=== PATIENT | female | born 1990 | race American Indian/Alaskan Native ===

== ENCOUNTER 2017-03-02 16:59 | Emergency (ER) | payer MEDICAID | END 2017-03-03 01:32 | disposition left against medical advice (07) | LOC: ED 16:59 | DX: R10.9 Unspecified abdominal pain (principal); Z53.21 Procedure and treatment not carried out due to patient leaving prior to being seen by health care provider ==

== ENCOUNTER 2017-09-15 17:30 | Outpatient (CLI) | payer MEDICAID ==
[2017-09-15 18:03] VITALS: BP 124/57
[2017-09-15] MEDS ORDERED: LACTATED RINGERS 500 ML IV ONE ×2 (18:05→20:03)
[2017-09-15] MEDS ORDERED: BRETHINE SUB-Q SCH (21:00)
== END 2017-09-15 21:30 | disposition home or self-care (01) ==
LOC: TRG 17:30
PROVIDERS: ATTEND Obstetrics & Gynecology
DX: Z34.93 Encounter for supervision of normal pregnancy, unspecified, third trimester (principal); Z3A.32 32 weeks gestation of pregnancy
CPT/HCPCS: 59025; 96360; 96372; J3105; J7120

== ENCOUNTER 2017-09-20 09:36 | Outpatient (CLI) | payer MEDICAID ==
[2017-09-20] MEDS ORDERED: LACTATED RINGERS 1,000 ML IV ONE (09:50)
[2017-09-20 10:29] VITALS: BP 114/59
[2017-09-20 11:05] LABS: Bacteria,Urine 1+ /HPF (Negative); Bilirubin,Urine NEG (Negative); Blood,Urine NEG (Negative); Ketones,Urine NEG (Negative); Leukocyte Esterase,Urine NEG (Negative); Mucus,Urine FEW /HPF; Nitrite,Urine NEG (Negative); Protein,Urine <15 mg/dL mg/dL (Negative); Urobilinogen,Urine < 2.0 mg/dL (<2.0)
== END 2017-09-20 12:09 | disposition home or self-care (01) ==
LOC: TRG 09:36
PROVIDERS: ATTEND Obstetrics & Gynecology
DX: Z34.93 Encounter for supervision of normal pregnancy, unspecified, third trimester (principal); Z3A.33 33 weeks gestation of pregnancy
CPT/HCPCS: 59025; 81001; 96360; 96361; J7120

== ENCOUNTER 2017-10-23 08:01 | Outpatient (CLI) | payer MEDICAID ==
[2017-10-23 09:25] VITALS: BP 121/57
== END 2017-10-23 09:35 | disposition home or self-care (01) ==
LOC: TRG 08:01
PROVIDERS: ATTEND Obstetrics & Gynecology
DX: O47.1 False labor at or after 37 completed weeks of gestation (principal); Z3A.37 37 weeks gestation of pregnancy
CPT/HCPCS: 59025

== ENCOUNTER 2017-10-27 15:38 | Inpatient (IN) | payer MEDICAID ==
[2017-10-27] MEDS ORDERED: BRETHINE SUB-Q PRN (16:06)
[2017-10-27] MEDS ORDERED: SUBLIMAZE IV PRN (16:06)
[2017-10-27] MEDS ORDERED: MINERAL OIL PO PRN (16:06)
[2017-10-27] MEDS ORDERED: ePHEDrine SULFATE IV PRN (16:06)
[2017-10-27] MEDS ORDERED: XYLOCAINE 2% INFILTRATI ONE (16:06)
[2017-10-27] MEDS ORDERED: ZOFRAN IV PRN (16:06)
--- NOTE | 2017-10-27 16:38 | History and Physical Report ---
History of Present Illness Date of examination: 10/27/17 (sent from office in active labor) History of present illness: EDC Confirmation: 11/08/2017 Gestational Age: 6 weeks Past History : 3 Term Births: 0 Premature Births: 1 Living Children: 1 Para: 1 Mult. Births: 0 Prev : 0 Prev. attempt? 0 Aborta: 1 Elect. Ab: 0 Spont. Ab: 1 Ectopics: 0 # 1 Delivery date: 06/23/2012 Weeks Gestation: 36 labor: yes Delivery type: Hours of labor: 23 Anesthesia type: epidural Delivery location: [place] Sex: Female weight: 6-0 Name: Michelle Comments: Place on Bedrest x 2 month # 2 Delivery date: 01/22/2015 Weeks Gestation: 12 Delivery type: SAB Comments: No D&C Past Medical History: Asthma Past Surgical History: Negative Past Surgical History Family History Summary: Other family member - Has No Family History of Ovarvian Cancer - Entered On: Other family member - Has No Family History of Colon Cancer - Entered On: 2016 Other family member - Has No Family History of Breast Cancer - Entered On: 2016 Social History: Abdiaziz Oliveira Patient is Risk Factors: Smoked Tobacco Use: Never smoker Drug use: no Alcohol use: no Dietary Counseling: pn yes Past Medical History Surgery (Non-junior engineer): Negative Past Surgical History Abnormal PAP: negative Uterine Anomaly: negative Social Hx: Abdiaziz Oliveira Patient is Infection History Hx of STD: none Personal hx. of genital herpes: no Genetic History Congenital Heart Defect: Mom: no Dad: no Brianna Disease: Mom: no Dad: no Thalassemia Mom: no Dad: no Neural Tube Defect Mom: no Dad: no Down's Syndrome Mom: no Dad: no Iron-Sachs Mom: no Dad: no Sickle Cell Disease/Trait Mom: no Dad: no Hemophilia Mom: no Dad: no Muscular Dystrophy Mom: no Dad: no Cystic Fibrosis Mom: no Dad: no [place] Chorea Mom: no Dad: no Mental Retardation Mom: no Dad: no Fragile X Mom: no Dad: no Other Genetic/Chromosomal Disorder Mom: no Dad: no Child w/other defect Mom: no Dad: no Enviromental Exposures Xray Exposure: no Medication, drug, or alcohol use since LMP: no Chemical/Other Exposure: no Exposure to Cat Liter: no Hx of Parvovirus (Fifth Disease): no Active Medications: FORMULA 27-1 MG ORAL TABS ( VIT-FE FUMARATE-FA) 1 po q day as directed 19 TABS ( VIT-DSS-FE FUM-FA TABS) Current Allergies (reviewed today): No known allergies Laboratory Results Date/Time Collected: 03/15/17 Routine Urinalysis Leukocytes: negative Nitrite: negative Urobilinogen: negative Protein: negative Blood: negative Ketone: large (80) Bilirubin: negative Glucose: negative Urine HCG: negative Review of Systems General Complains of fatigue. Denies fever, chills, sweats, anorexia, weakness, malaise, weight loss and sleep disorder. Complains of pelvic pain. Denies vaginal discharge, incontinence, dysuria, hematuria, urinary frequency, amenorrhea, menorrhagia, abnormal vaginal bleeding, genital sores, decreased libido, painful periods, painful sex, urinary urgency, hot flashes, vaginal dryness, vaginal itching and vaginal odor. CV Denies chest pains, palpitations, syncope, dyspnea on exertion, orthopnea, PND and peripheral edema. Resp Denies cough, dyspnea at rest, excessive sputum, hemoptysis, wheezing and pleurisy. GI Denies nausea, vomiting, diarrhea, constipation, change in bowel habits, abdominal pain, melena, hematochezia, jaundice, gas/bloating, indigestion/ heartburn, dysphagia and odynophagia. Breast Complains of breast pain. Denies left breast lump, right breast lump, nipple discharge, bloody discharge from nipple, abnormal mammogram and breast enlargement. Psych Denies depression, anxiety, irritability and mood swings. PHYSICAL EXAM HEENT: normocephalic, no lesions or deformities Neck/Thyroid: supple, thyroid normal Skin no significant abnormal lesions or rashes . .Tatoo(s) are present Chest: respiratory effort normal, clear to auscultation Breasts: skin/areolae normal, no masses, no nipple discharge, no erythema/warmth /tenderness, and axillae normal. CV: regular, normal S1-S2, no murmur, no rub, no gallop .Tatoo(s) are present Abdomen: Obese, normal bowel sounds, soft, nontender, no HSM .Tatoo(s) are present Musculoskeletal: grossly normal ROM in joints, no joint tenderness or muscle weakness Neuro: no gross anomalities Extremities: no clubbing, cyanosis, or edema .Tatoo(s) are present Flowsheet View for Follow-up Visit Estimated weeks of gestation: 6 Weight: 207 Blood pressure: 117 / 60 Urine protein: negative Urine glucose: negative Urine nitrite: negative Infant's Physician: undecided Past History - Obstetrical History Expected Date of Delivery: 11/08/17 Actual Gestation: 38 Week(s) 2 Day(s) : 3 Para: 1 Number of Pregnancies: 1 (36 weeks) Spontaneous Abortions: 1 Number of Living Children: 1 Medications and Allergies Allergies Allergy/AdvReac Type Severity Reaction Status Date / Time No Known Allergies Allergy Verified 09/15/17 18:04 Home Medications Medication Instructions Recorded Confirmed Last Taken Type Vit No.129/Iron/Folic 1 each PO DAILY 09/15/17 09/20/17 09/15/17 08:00 History [ Tablet] Active Meds: Active Medications Ephedrine Sulfate (Ephedrine Sulfate) 10 mg IV Q2M PRN PRN Reason: Hypotension Fentanyl (Sublimaze) 100 mcg IV Q2H PRN PRN Reason: Labor Pain Lactated Ringer's (Lactated Ringers) 1,000 mls @ 125 mls/hr IV DIRECT XAVIER Oxytocin/Sodium Chloride (Pitocin/Ns 20 Unit/1000ml Drip) 20 units in 1,000 mls @ 125 mls/hr IV DIRECT XAVIER Oxytocin/Sodium Chloride (Pitocin/Ns 30 Unit/500ml) 30 units in 500 mls @ 4 mls /hr IV Q30MIN XAVIER PRN Reason: Protocol Lidocaine (Xylocaine 2%) 20 ml INFILTRATI ONCE ONE Stop: 10/27/17 16:07 Mineral Oil (Mineral Oil) 30 ml PO QHS PRN PRN Reason: Constipation Ondansetron HCl (Zofran) 4 mg IV Q8H PRN PRN Reason: Nausea And Vomiting Terbutaline Sulfate (Brethine) 0.25 mg SUB-Q ONCE PRN PRN Reason: Hyperstimulation/Hypertonicity - Physical Exam Breasts: Positive: deferred Cardiovascular: Regular rate, Normal S1, Normal S2 Lungs: Positive: Normal air movement Abdomen: Positive: normal appearance, soft, normal bowel sounds. Negative: distention, tenderness Genitourinary (Female): Positive: normal external genitalia Vulva: both: normal Vagina: Positive: normal moisture. Negative: discharge Cervix: Negative: lesion, discharge Uterus: Positive: normal size, normal contour Adnexa: both: normal Anus/Rectum: Positive: normal perianal skin, heme negative. Negative: rectal mass, hemorrhoids Extremities: Positive: normal Deep Tendon Reflex Grade: Normal +2 - Obstetrical FHR: category 1 Uterine Contraction Monitor Mode: External Cervical Dilatation: 5 (per gum worker) Cervical Effacement Percentage: 70 station: -2 Uterine Contraction Pattern: Irregular Uterine Tone Measurement Phase: Resting Uterine Contraction Intensity: Moderate Results All other labs normal. Strep Gp B RAINER Negative HBsAg Screen Negative Negative *1 Rubella Antibodies, IgG 2.91 index Immune >0.99 *2 Non-immune <0.90 Equivocal 0.90 - 0.99 Immune >0.99 ABO Grouping O *3 Rh Factor Positive *4 Please note: Prior records for this patient's ABO / Rh type are not available for additional verification. Antibody Screen Negative Negative *5 RPR Non Reactive Non Reactive *6 WBC [H] 18.5 x10E3/uL 3.4-10.8 *7 RBC 4.35 x10E6/uL 3.77-5.28 *8 Hemoglobin 12.7 g/dL 11.1-15.9 *9 Hematocrit 38.7 % 34.0-46.6 *10 MCV 89 fL 79-97 *11 MCH 29.2 pg 26.6-33.0 *12 MCHC 32.8 g/dL 31.5-35.7 *13 RDW 13.5 % 12.3-15.4 *14 Platelets 264 x10E3/uL 150-379 *15 Neutrophils 69 % *16 Lymphs 22 % *17 Monocytes 7 % *18 Eos 2 % *19 Basos 0 % *20 ! Immature Cells <No Reported Value> *21 Neutrophils (Absolute) [H] 13.0 x10E3/uL 1.4-7.0 *22 Lymphs (Absolute) [H] 4.0 x10E3/uL 0.7-3.1 *23 Monocytes(Absolute) [H] 1.2 x10E3/uL 0.1-0.9 *24 Eos (Absolute) 0.3 x10E3/uL 0.0-0.4 *25 Baso (Absolute) 0.0 x10E3/uL 0.0-0.2 *26 ! Immature Granulocytes 0 % *27 ! Immature Grans (Abs) 0.0 x10E3/uL 0.0-0.1 *28 ! NRBC <No Reported Value> *29 Hematology Comments: <No Reported Value> *30 Tests: (2) Cystic Fibrosis Profile (862579) ! CF, Screen Comment: *31 RESULTS: Negative for 32 mutations analyzed Tests: (3) HB Solu + Rflx Fra (407924) Hemoglobin (Hgb) Solubility Negative Negative *33 Tests: (4) Panel 349412 ([id number]) HIV Screen 4th Generation wRfx Non Reactive Non Reactive *34 Tests: (5) HCV Ab w/Rflx to Verification (700408) ! HCV Ab <0.1 s/co ratio 0.0-0.9 *35 Tests: (6) Comment: (874515) ! Comment: SPRCS *36 Non reactive HCV antibody screen is consistent with no HCV infection, unless recent infection is suspected or other evidence exists to indicate HCV infection. Assessment and Plan 27yo @ 38 weeks in labor Sent from OB office. GBS negative. Orders in EMR.Anticipate delivery
[2017-10-27] MEDS ORDERED: PITOCin/NS 30 UNIT/500ML 30 UNITS/500 ML BAG IV SCH (17:00)
[2017-10-27] MEDS ORDERED: LACTATED RINGERS 1,000 ML IV SCH (17:00)
[2017-10-27] MEDS ORDERED: PITOCin/NS 20 UNIT/1000ML DRIP 20 UNITS/1,000 ML BAG IV SCH (17:00)
--- NOTE | 2017-10-27 17:21 | Progress Note ---
Assessment and Plan Bolusing for epidural SVE no chg AROM clear Internals placed. Pit started @ 4mu will increase per protocol once epidural is placed. All questions addressed. Subjective - Subjective Date of service: 10/27/17 (AROM clear) Principal diagnosis: IUP @ 38 weeks in labor Interval history: EDC Confirmation: 11/08/2017 Gestational Age: 6 weeks Past History : 3 Term Births: 0 Premature Births: 1 Living Children: 1 Para: 1 Mult. Births: 0 Prev : 0 Prev. attempt? 0 Aborta: 1 Elect. Ab: 0 Spont. Ab: 1 Ectopics: 0 # 1 Delivery date: 06/23/2012 Weeks Gestation: 36 labor: yes Delivery type: Hours of labor: 23 Anesthesia type: epidural Delivery location: [place] Infant Sex: Female weight: 6-0 Name: Michelle Comments: Place on Bedrest x 2 month # 2 Delivery date: 01/22/2015 Weeks Gestation: 12 Delivery type: SAB Comments: No D&C Past Medical History: Asthma Past Surgical History: Negative Past Surgical History Family History Summary: Other family member - Has No Family History of Ovarvian Cancer - Entered On: Other family member - Has No Family History of Colon Cancer - Entered On: 2016 Other family member - Has No Family History of Breast Cancer - Entered On: 2016 Social History: Abdiaziz Associate Patient is Risk Factors: Smoked Tobacco Use: Never smoker Drug use: no Alcohol use: no Dietary Counseling: pn yes Past Medical History Surgery (Non-obstetrics/gynecology nurse): Negative Past Surgical History Abnormal PAP: negative Uterine Anomaly: negative Social Hx: Dougpetrt Associate Patient is Infection History Hx of STD: none Personal hx. of genital herpes: no Genetic History Congenital Heart Defect: Mom: no Dad: no Brianna Disease: Mom: no Dad: no Thalassemia Mom: no Dad: no Neural Tube Defect Mom: no Dad: no Down's Syndrome Mom: no Dad: no Iron-Sachs Mom: no Dad: no Sickle Cell Disease/Trait Mom: no Dad: no Hemophilia Mom: no Dad: no Muscular Dystrophy Mom: no Dad: no Cystic Fibrosis Mom: no Dad: no [place] Chorea Mom: no Dad: no Mental Retardation Mom: no Dad: no Fragile X Mom: no Dad: no Other Genetic/Chromosomal Disorder Mom: no Dad: no Child w/other defect Mom: no Dad: no Enviromental Exposures Xray Exposure: no Medication, drug, or alcohol use since LMP: no Chemical/Other Exposure: no Exposure to Cat Liter: no Hx of Parvovirus (Fifth Disease): no Active Medications: FORMULA 27-1 MG ORAL TABS ( VIT-FE FUMARATE-FA) 1 po q day as directed 19 TABS ( VIT-DSS-FE FUM-FA TABS) Current Allergies (reviewed today): No known allergies Laboratory Results Date/Time Collected: 03/15/17 Routine Urinalysis Leukocytes: negative Nitrite: negative Urobilinogen: negative Protein: negative Blood: negative Ketone: large (80) Bilirubin: negative Glucose: negative Urine HCG: negative Review of Systems General Complains of fatigue. Denies fever, chills, sweats, anorexia, weakness, malaise, weight loss and sleep disorder. Complains of pelvic pain. Denies vaginal discharge, incontinence, dysuria, hematuria, urinary frequency, amenorrhea, menorrhagia, abnormal vaginal bleeding, genital sores, decreased libido, painful periods, painful sex, urinary urgency, hot flashes, vaginal dryness, vaginal itching and vaginal odor. CV Denies chest pains, palpitations, syncope, dyspnea on exertion, orthopnea, PND and peripheral edema. Resp Denies cough, dyspnea at rest, excessive sputum, hemoptysis, wheezing and pleurisy. GI Denies nausea, vomiting, diarrhea, constipation, change in bowel habits, abdominal pain, melena, hematochezia, jaundice, gas/bloating, indigestion/ heartburn, dysphagia and odynophagia. Breast Complains of breast pain. Denies left breast lump, right breast lump, nipple discharge, bloody discharge from nipple, abnormal mammogram and breast enlargement. Psych Denies depression, anxiety, irritability and mood swings. PHYSICAL EXAM HEENT: normocephalic, no lesions or deformities Neck/Thyroid: supple, thyroid normal Skin no significant abnormal lesions or rashes . .Tatoo(s) are present Chest: respiratory effort normal, clear to auscultation Breasts: skin/areolae normal, no masses, no nipple discharge, no erythema/warmth /tenderness, and axillae normal. CV: regular, normal S1-S2, no murmur, no rub, no gallop .Tatoo(s) are present Abdomen: Obese, normal bowel sounds, soft, nontender, no HSM .Tatoo(s) are present Musculoskeletal: grossly normal ROM in joints, no joint tenderness or muscle weakness Neuro: no gross anomalities Extremities: no clubbing, cyanosis, or edema .Tatoo(s) are present Flowsheet View for Follow-up Visit Estimated weeks of gestation: 6 Weight: 207 Blood pressure: 117 / 60 Urine protein: negative Urine glucose: negative Urine nitrite: negative 's Physician: undecided Patient reports: movement normal Objective - Vital Signs Vital Signs: Vital Signs - 12hr 10/27/17 10/27/17 10/27/17 16:36 16:39 16:54 Temperature 98.5 F Pulse Rate 86 82 Respiratory 18 Rate Blood Pressure 115/71 127/67 10/27/17 17:10 Temperature Pulse Rate 92 H Respiratory Rate Blood Pressure 120/60 - Exam Breasts: deferred Cardiovascular: Regular rate Lungs: Normal air movement Abdomen: Present: normal appearance, soft. Absent: distention, tenderness Uterus: Present: normal FHR: auscultation normal, category 1 Uterine Contraction Monitor Mode: Internal Cervical Dilatation: 5 (AROM clear) Cervical Effacement Percentage: 70 (ISE/IUPC placed) station: -2 Uterine Contraction Pattern: Regular Uterine Tone Measurement Phase: Resting Uterine Contraction Intensity: Moderate Extremities: normal Deep Tendon Reflex Grade: Normal +2
[2017-10-27 17:23] LABS: Hematocrit 36.6 % (30.3-42.9); Mean Corpuscular HGB Conc 33 % (30-34); Mean Corpuscular Hemoglobin 30 pg (28-32); Mean Corpuscular Volume 90 fl (79-97); Platelet Count 200 K/mm3 (140-440); Red Blood Count 4.05 M/mm3 (3.65-5.03); Red Cell Distribution Width 13.1 % (13.2-15.2)
[2017-10-27] MEDS ORDERED: fentaNYL-BUPIV 2 MCG/ML-0.125% 200 MCG/100 ML BAG EPIDURAL ONE (17:36)
[2017-10-27] MEDS ORDERED: MORPHINE IV PRN (18:38)
--- NOTE | 2017-10-27 18:38 | Anesthesia Consultation ---
Anesthesia Consult and Med Hx Date of service: 10/27/17 - Airway Anesthetic Teeth Evaluation: Good ROM Head & Neck: Adequate Mental/Hyoid Distance: Adequate Mallampati Class: Class II Intubation Access Assessment: Probably Good - Pulmonary Exam CTA: Yes - Cardiac Exam Cardiac Exam: RRR - Pre-Operative Health Status ASA Pre-Surgery Classification: ASA3, Emergency Proposed Anesthetic Plan: Spinal - Pulmonary Hx Asthma: Yes (uses inhaler prn) - Cardiovascular System Hx Hypertension: No - Central Nervous System Hx Seizures: No Hx Psychiatric Problems: No - Endocrine Hx Renal Disease: No Hx Hypothyroidism: No Hx Hyperthyroidism: No - Hematic Hx Anemia: No Hx Sickle Cell Disease: No - Other Systems Hx Alcohol Use: No
--- NOTE | 2017-10-27 18:38 | Anesthesia Day of Surgery ---
Anesthesia Day of Surgery - Day of Surgery Patient Examined: Yes Patient H&P Reviewed: Yes Patient is NPO: No (FSP)
[2017-10-27] MEDS ORDERED: PHENERGAN PR PRN (20:07)
[2017-10-27] MEDS ORDERED: TUCKS PAD TP PRN (20:07)
[2017-10-27] MEDS ORDERED: PHENERGAN PO PRN (20:07)
[2017-10-27] MEDS ORDERED: DULCOLAX PR PRN (20:07)
[2017-10-27] MEDS ORDERED: BENADRYL PO PRN (20:07)
[2017-10-27] MEDS ORDERED: LANSINOH TP PRN (20:07)
[2017-10-27] MEDS ORDERED: TYLENOL PO PRN (20:07)
[2017-10-27] MEDS ORDERED: MILK OF MAGNESIA PO PRN (20:07)
--- NOTE | 2017-10-27 20:18 | Procedure Note ---
OB Delivery Note - Delivery Date of Delivery: 10/27/17 Glue Reel Operator: NELLA WOO Estimated blood loss: 300cc - Vaginal Delivery presentation: vertex Delivery position: OA Intrapartum events: none Delivery induction: none Delivery augmentation: rupture of membranes Delivery monitor: internal FHT, internal uterine Route of delivery: Delivery placenta: spontaneous Delivery cord: 3 umbilical vessels Episiotomy: none Delivery laceration: none Anesthesia: epidural Delivery comments: live born male over intact perineum. Compound presentation with posterior hand and arm. Baby to mom's abdomen skin to skin. Baby slow to cry despite drying and stim Cord clamped and cut. Baby moved to warmer. Suction, stim, O2 blow by. Baby crying HR always above 100 No retractions, no grunting. Cord blood obtained.Placenta and membrane del complete and intact. 7/9 EBL 300 , Wgt 8-6. Pitocin IVFs. Mom and baby remain LDR stable. - Infant A at 1 minute: 7 at 5 minutes: 9 Infant Gender: Male (wgt 8-6)
[2017-10-27] MEDS ORDERED: SODIUM CHLORIDE FLUSH SYRINGE 10 ML IV NR (21:00)
[2017-10-27] MEDS ORDERED: MOTRIN PO SCH (21:00)
[2017-10-27] MEDS: MOTRIN PO SCH (22:35)
[2017-10-28] MEDS: NORCO 5/325 PO PRN ×2 (00:54→17:01)
[2017-10-28] MEDS: MOTRIN PO SCH ×2 (05:48→17:02)
[2017-10-28 06:16] LABS: Hematocrit 32.2 % (30.3-42.9); Hemoglobin 10.7 gm/dl (10.1-14.3)
--- NOTE | 2017-10-28 08:03 | Progress Note ---
Assessment and Plan patient doing well, no complaints. Petar arriaga, RAFAELASAF, H&H 10.7/32.2. Patient desires d/c home tonight. Plan for f/u 4 weeks in office. - Patient Problems (1) Spontaneous vaginal delivery Current Visit: Yes Status: Acute Subjective - Subjective Date of service: 10/28/17 Principal diagnosis: day #1 s/p Patient reports: appetite normal, voiding normally, pain well controlled, ambulating normally, no dizzy ambulation, no nauseated : doing well, nursing well (breast and bottle feeding) Objective - Vital Signs Latest vital signs: Vital Signs Temp Pulse Resp BP BP Pulse Ox 10/28/17 05:38 98.4 F 73 18 122/49 10/27/17 23:05 98.4 F 67 18 123/69 98 10/27/17 21:15 91 H 150/63 10/27/17 21:00 69 155/70 10/27/17 20:46 73 157/67 10/27/17 20:30 64 129/60 10/27/17 20:12 100 H 132/62 10/27/17 20:10 78 133/63 10/27/17 20:08 90 137/67 98 10/27/17 20:06 80 127/59 10/27/17 20:04 93 H 124/59 10/27/17 20:03 78 98 10/27/17 20:02 83 124/58 10/27/17 20:01 84 10/27/17 19:49 117 H 141/86 10/27/17 19:46 100 H 150/67 10/27/17 19:45 81 150/66 10/27/17 19:43 93 H 148/70 10/27/17 19:41 111 H 132/72 10/27/17 19:38 100 H 143/82 10/27/17 19:37 93 H 126/79 10/27/17 19:36 95 H 98 10/27/17 19:33 52 L 162/71 10/27/17 19:31 89 98 10/27/17 19:30 93 H 151/74 10/27/17 19:29 81 132/71 10/27/17 19:27 78 110/57 10/27/17 19:26 68 97 12/28/17 19:25 94 H 147/65 12/28/17 19:22 64 134/64 10/27/17 19:21 68 97 10/27/17 19:20 68 130/66 10/27/17 19:19 26 L 87 10/27/17 19:18 74 129/62 10/27/17 19:16 71 125/58 99 10/27/17 19:15 65 125/60 10/27/17 19:12 81 126/68 10/27/17 19:11 75 98 10/27/17 19:08 78 119/59 10/27/17 19:06 68 116/58 97 10/27/17 19:04 67 115/58 10/27/17 19:02 67 114/60 10/27/17 19:01 83 97 10/27/17 19:00 81 117/65 10/27/17 18:58 81 126/66 10/27/17 18:56 80 114/58 98 10/27/17 18:54 82 120/61 10/27/17 18:52 90 117/63 10/27/17 18:51 68 97 10/27/17 18:50 71 18 114/58 10/27/17 18:48 67 119/56 10/27/17 18:46 69 117/59 97 10/27/17 18:44 67 119/56 10/27/17 18:42 65 120/57 10/27/17 18:41 67 97 10/27/17 18:40 67 122/58 10/27/17 18:38 67 116/57 10/27/17 18:36 75 123/58 97 10/27/17 18:34 76 122/57 10/27/17 18:33 80 134/62 10/27/17 18:31 109 H 97 10/27/17 18:30 104 H 129/59 10/27/17 18:26 109 H 96 10/27/17 18:21 104 H 98 10/27/17 18:20 82 128/64 10/27/17 18:16 92 H 99 10/27/17 18:11 93 H 99 10/27/17 18:06 79 100 10/27/17 18:04 85 136/75 10/27/17 18:01 77 99 10/27/17 17:56 70 99 10/27/17 17:51 73 137/80 98 10/27/17 17:47 110 H 126/64 10/27/17 17:46 95 H 98 10/27/17 17:39 69 136/78 10/27/17 17:25 67 119/57 10/27/17 17:10 92 H 120/60 10/27/17 16:54 82 127/67 10/27/17 16:39 86 115/71 10/27/17 16:36 98.5 F 18 Intake and Output 10/27/17 10/28/17 10/28/17 23:59 07:59 15:59 Intake Total 1000 Output Total 300 500 Balance -300 500 Intake: IV 1000 PITOCin/NS 20 UNIT/1000ML 1000 DRIP 20 units In 1,000 ml @ 125 mls/hr IV DIRECT XAVIER Rx#:[id number] Output: Urine 300 500 Indwelling Catheter 300 Void 500 Other: Total, Output Amount 300 500 Weight 97.976 kg Estimated Blood Loss 300 - Exam Breasts: Present: normal, Cardiovascular: Present: Regular rate Lungs: Present: Clear to auscultation, Normal air movement Abdomen: Present: normal appearance, soft, normal bowel sounds Vulva: both: normal Uterus: Present: normal, firm, fundal height at umbilicus Extremities: Present: normal Deep Tendon Reflex Grade: Normal +2 - Labs Labs: Abnormal lab results 10/27/17 Range/Units 16:45 WBC 16.4 H (4.5-11.0) K/mm3 RDW 13.1 L (13.2-15.2) %
--- NOTE | 2017-10-28 08:05 | Discharge Summary ---
Providers - Providers Date of Admission: 10/27/17 16:40 Date of discharge: 10/28/17 (pt desires d/c home) Attending physician: ARMANI SALINAS Primary care physician: ARMANI SALINAS Hospitalization Reason for admission: active labor Delivery: Episiotomy: none Laceration: none Other procedures: none complications: none Discharge diagnosis: IUP at term delivered Shelly baby: male Hospital course: uncomplicated vaginal Condition at discharge: Good Disposition: DC-01 TO HOME OR SELFCARE - Discharge Diagnoses (1) Spontaneous vaginal delivery Status: Acute Plan - Discharge Medications Prescriptions: Ibuprofen [Motrin 800 MG tab] 800 mg PO TID PRN #30 tablet PRN Reason: Pain Lidocain2.5%/Prilocai2.5% [Emla] 5 gm TP PRN #1 tube - Provider Discharge Summary Activity: routine, no sex for 6 weeks, no heavy lifting 4 weeks, no strenuous exercise Diet: routine Instructions: routine Additional instructions: [] Smoking cessation referral if applicable(refer to patient education folder for contact #) [] Refer to [facility]'s [facility] Booklet Call your doctor immediately for: * Fever > 100.5 * Heavy vaginal bleeding ( >1 pad per hour) * Severe persistent headache * Shortness of breath * Reddened, hot, painful area to leg or breast * Drainage or odor from incision. * Keep incision clean and dry at all times and follow doctor's instructions regarding bathing/showering - Follow up plan Follow up: ARMANI SALINAS MD [Primary Care Provider] - 7 Days (Congratulations! Please call [phone] to schedule your son's circumcision in 1 week and your visit in 4 weeks. Bring EMLA cream to your son's appointment and await further instructions. Call for any questions or concerns. )
[2017-10-28] MEDS ORDERED: DERMOPLAST TP PRN (17:06)
[2017-10-28] MEDS ORDERED: BOOSTRIX IM ONE (20:07)
[2017-10-28] MEDS ORDERED: M-M-R II VACCINE SUB-Q ONE (20:07)
[2017-10-29] MEDS: MOTRIN PO SCH (00:20)
[2017-10-29 08:45] VITALS: BP 100/82
== END 2017-10-29 11:30 | disposition home or self-care (01) | DRG 775 ==
LOC: TRG 15:38 → LD 16:40 → OB 21:58
PROVIDERS: ADMIT Obstetrics & Gynecology; ATTEND Obstetrics & Gynecology
PROC: 10E0XZZ Delivery of Products of Conception, External Approach (ICD-10-PCS; principal; 2017-10-27)
PROC: 3E0234Z Introduction of Serum, Toxoid and Vaccine into Muscle, Percutaneous Approach (ICD-10-PCS; 2017-10-27)
PROC: 10907ZC Drainage of Amniotic Fluid, Therapeutic from Products of Conception, Via Natural or Artificial Opening (ICD-10-PCS; 2017-10-27)
PROC: 3E0R3BZ Introduction of Anesthetic Agent into Spinal Canal, Percutaneous Approach (ICD-10-PCS; 2017-10-27)
PROC: 00HU33Z Insertion of Infusion Device into Spinal Canal, Percutaneous Approach (ICD-10-PCS; 2017-10-27)
DX: O99.52 Diseases of the respiratory system complicating childbirth (principal); Z3A.38 38 weeks gestation of pregnancy; Z37.0 Single live birth; Z23 Encounter for immunization; J45.909 Unspecified asthma, uncomplicated
CPT/HCPCS: 36415; 85014; 85018; 85027; 86592; 86850; 86900; 86901; 99211; G0463; J2590; J3010; J7120